=== PATIENT | male | born 1970 | race Caucasian/White ===

== ENCOUNTER 2025-11-04 15:22 | Outpatient (CLI) | payer MEDICAID ==
--- NOTE | 2025-11-05 07:50 | RADIOLOGY REPORT ---
CLINICAL INFORMATION: PAIN IN RIGHT ELBOW. COMPARISON: None TECHNIQUE: Multisequence multiplanar MRI images of the right elbow were obtained without contrast. FINDINGS: BONES/JOINT: No acute fracture or focal marrow contusion. Mild arthritic changes at the ulnotrochlear joint. No significant joint effusion. TENDONS: [id number] tendinosis at the common extensor tendon origin with minimal interstitial signal, possible ill-defined interstitial tear. Mild Subtle adjacent soft tissue edema also noted. Origin of the common flexor tendon is intact and otherwise unremarkable. Distal biceps tendon, brachialis tendon, and triceps tendon are intact and otherwise unremarkable. LIGAMENTS: Ulnar collateral ligament is intact. Radial collateral ligament, lateral ulnar collateral ligament, and annular ligament are intact. CUBITAL TUNNEL: Unremarkable. Normal signal intensity and caliber of the ulnar nerve within the cubital tunnel. MUSCLES: Normal muscle bulk. No significant atrophy. No evidence of muscle strain or tear. OTHER: No other significant findings. IMPRESSION: 1. Tendinosis at the common extensor tendon origin with ill-defined interstitial tear. 2. Mild arthritic changes, primarily involving the ulnotrochlear articulation.
== END 2025-11-04 23:59 | disposition home or self-care (01) ==
LOC: MRI02 15:22
PROVIDERS: ATTEND Nurse Practitioner
DX: S66.318A Strain of extensor muscle, fascia and tendon of other finger at wrist and hand level, initial encounter (principal); M19.021 Primary osteoarthritis, right elbow; M67.823 Other specified disorders of tendon, right elbow; M25.521 Pain in right elbow; M77.8 Other enthesopathies, not elsewhere classified; X58.XXXA Exposure to other specified factors, initial encounter; Y93.89 Activity, other specified; Y92.89 Other specified places as the place of occurrence of the external cause; Y99.8 Other external cause status
CPT/HCPCS: 73221